=== PATIENT | female | born 1990 | race Caucasian/White ===

== ENCOUNTER 2017-02-16 20:19 | Emergency (ER) | payer BC ==
[~2017-02-16] VITALS: Ht 162.6 cm; Wt 56.7 kg
[2017-02-16] MEDS ORDERED: IV NORMAL SALINE 1,000ML 1,000 ML IV SCH (20:47)
--- NOTE | 2017-02-16 20:47 | PHYS DOC ---
Past History Past Medical History: No Pertinent History Past Surgical History: No Surgical History Adult General Chief Complaint Chief Complaint: ABDOMINAL PAIN [facility] Patient is a 27 year old female who presents with abdominal pain. Started today at 1300 PM. Nausea but no vomiting. Pain is right lower. No diarrhea or abnormal stools. No urinary complaints. No fever. No travel. No sick contacts. No prior surgeries. Review of Systems Review of Systems Constitutional: Denies fever or chills Eyes: Denies change in visual acuity, redness, or eye pain HENT: Denies nasal congestion or sore throat Respiratory: Denies cough or shortness of breath Cardiovascular: No additional information not addressed in HPI. No chest pain. GI: Note abdominal pain, nausea, but no vomiting, No bloody stools or diarrhea : Denies dysuria or hematuria Musculoskeletal: Denies back pain or joint pain Integument: Denies rash or skin lesions Neurologic: Denies headache, focal weakness or sensory changes Physical Exam Physical Exam Constitutional: Well developed, well nourished, in some pain, non-toxic appearance. HENT: Normocephalic, atraumatic, bilateral external ears normal, oropharynx moist, no oral exudates, nose normal. Eyes: PERRLA, EOMI, conjunctiva normal, no discharge. Neck: Normal range of motion, no tenderness, supple, no stridor. Cardiovascular:Heart rate regular rhythm, no murmur Lungs & Thorax: Bilateral breath sounds clear to auscultation Abdomen: Bowel sounds normal, soft, tenderness focal right lower quadrant; some voluntary rebound but no guarding, no masses, no pulsatile masses. Skin: Warm, dry, no erythema, no rash. Back: No tenderness, no CVA tenderness. Extremities: No tenderness, no cyanosis, no clubbing, ROM intact, no edema. Neurologic: Alert and oriented X 3, normal motor function, normal sensory function, no focal deficits noted. Psychologic: Affect normal, judgement normal, mood normal. Current Patient Data Vital Signs Vital Signs Date Time Temp Pulse Resp B/P (MAP) Pulse Ox O2 Delivery O2 Flow Rate FiO2 02/16/17 21:29 16 02/16/17 20:45 97.9 66 100 Room Air Lab Results Laboratory Tests Test 02/16/17 21:00 02/16/17 21:02 Urine Collection Type Unknown Urine Color Yellow Urine Clarity Hazy Urine pH 8.0 Urine Specific [place] 1.020 Urine Protein Neg Urine Glucose (UA) Neg mg/dL Urine Ketones (Stick) 40 mg/dL Urine Blood Neg Urine Nitrite Neg Urine Bilirubin Neg Urine Urobilinogen Dipstick 0.2 mg/dL Urine Leukocyte Esterase Neg Urine RBC 0 /HPF Urine WBC 0 /HPF Urine Squamous Epithelial Cells Many /LPF Urine Bacteria Few /HPF White Blood Count 12.5 x10^3/uL Red Blood Count 4.62 x10^6/uL Hemoglobin 13.2 g/dL Hematocrit 39.6 % Mean Corpuscular Volume 86 fL Mean Corpuscular Hemoglobin 29 pg Mean Corpuscular Hemoglobin Concent 33 g/dL Red Cell Distribution Width 12.9 % Platelet Count 235 x10^3/uL Neutrophils (%) (Auto) 73 % Lymphocytes (%) (Auto) 21 % Monocytes (%) (Auto) 5 % Eosinophils (%) (Auto) 0 % Basophils (%) (Auto) 0 % Neutrophils # (Auto) 9.1 x10^3uL Lymphocytes # (Auto) 2.7 x10^3/uL Monocytes # (Auto) 0.6 x10^3/uL Eosinophils # (Auto) 0.0 x10^3/uL Basophils # (Auto) 0.0 x10^3/uL Sodium Level 138 mmol/L Potassium Level 3.5 mmol/L Chloride Level 99 mmol/L Carbon Dioxide Level 27 mmol/L Anion Gap 12 Blood Urea Nitrogen 9 mg/dL Creatinine 0.8 mg/dL Estimated GFR (Cockcroft-Gault) 86.7 BUN/Creatinine Ratio 11 Glucose Level 94 mg/dL Calcium Level 9.6 mg/dL Total Bilirubin 0.5 mg/dL Aspartate Amino Transf (AST/SGOT) 14 U/L Alanine Aminotransferase (ALT/SGPT) 23 U/L Alkaline Phosphatase 96 U/L Total Protein 8.3 g/dL Albumin 4.4 g/dL Albumin/Globulin Ratio 1.1 Serum Test, Qualitative Negative Current Medications Medications (Trade) Dose Ordered Sig/Ping Route PRN Reason Start Time Stop Time Status Last Admin Dose Admin Morphine Sulfate (Morphine 2mg Syringe) 2 mg PRN Q15MIN PRN IV/SQ PAIN GREATER THAN 3/10 02/16/17 21:00 02/17/17 20:59 02/16/17 21:29 Sodium Chloride 1,000 ml @ 1,000 mls/hr Q1H IV 02/16/17 20:47 02/16/17 21:46 DC 02/16/17 21:28 Ondansetron HCl (Zofran) 4 mg 1X ONCE IV 02/16/17 21:30 02/16/17 21:31 DC 02/16/17 21:29 Iohexol (Omnipaque 300 Mg/ml) 75 ml 1X ONCE IV 02/16/17 22:00 02/16/17 22:01 Radiology/Procedures Radiology/[place] [address] IMAGING REPORT Signed PATIENT: KENYON SAMUEL ACCOUNT: [id number] : 1990 LOCATION: ER AGE: 27 SEX: F EXAM STATUS: REG ER ORD. PHYSICIAN: DEISI MORALES MD REASON: RLQ pain w elev WBC PROCEDURE: CT ABD PELV W/ IV CONTRST ONLY PROCEDURE CT study of the abdomen and pelvis with contrast HISTORY Right lower quadrant pain. Elevated white blood cell count. Nausea today. TECHNIQUE After IV infusion of 75 cc of Omnipaque 300, helical CT scanning of the abdomen and pelvis was performed. No GI contrast was administered. This may decrease the sensitivity to detect GI tract pathology. One or more of the following individualized dose reduction techniques were utilized for this study: 1. Automated exposure control 2. Adjustment of the mA and/or kV according to patient size 3. Use of iterative reconstruction technique COMPARISON None available. FINDINGS The liver and spleen and pancreas and gallbladder are normal. No extrahepatic biliary ductal dilatation is seen. No adrenal mass is evident. Both kidneys are normal. No hydronephrosis or hydroureter is seen. Urinary bladder wall is smooth. No uterine mass or fibroid is seen. There is a cyst of the right ovary measuring 2.7 centimeters. There is a small amount of free fluid within the cul-de-sac. The appendix cannot be visualized on this study without GI contrast material. No wall thickening of the cecum or mesenteric inflammatory change or free fluid is seen around the base of the cecum. No small bowel obstruction is evident. There is mild fecal retention throughout the colon. No free air or inflammatory change is seen. No lung base consolidation is evident. No focal aneurysmal dilatation of the abdominal aorta is seen. No enlarged abdominal or pelvic lymphadenopathy is seen. No osteolytic process is seen. IMPRESSION There is 2.7 centimeter right ovarian cyst. A small amount of free fluid is seen within the cul-de-sac. The appendix cannot be visualized in this study without GI contrast material. No obstructive bowel pattern or free air is seen. Electronically signed by: Jamaal Howard MD (February 16, 2017 22:27:04) DICTATED AND SIGNED BY: JAMAAL HOWARD MD DATE: 02/16/172226 CC: DEISI MORALES MD; PCP,NO ~ Course & Med Decision Making Course & Med Decision Making Pertinent Labs and Imaging studies reviewed. (See chart for details) Evaluated patient upon arrival; concerned about appy. IV NS, IV morphine 2 mg and Zofran. Kept NPO 2135 PM: WBC is elevated; HCG negative. CT ordered. 2345 PM: CT results back: no evidence of appendicitis; right ovarian cyst with fluid in cul de sac. Repeat exam: NO rebound or guarding; no evidence of acute surgical abdomen; feels much better. Home with ABDOMINAL PAIN PRECAUTIONS given to patient and S.O. Rx; Zofran and norco. Dragon Disclaimer Dragon Disclaimer This chart was dictated in whole or in part using Voice Recognition software in a busy, high-work load, and often noisy Emergency Department environment. It may contain unintended and wholly unrecognized errors or omissions. Departure Departure: Impression: Primary Impression: Abdominal pain Additional Impression: Right ovarian cyst Disposition: HOME, SELF-CARE Condition: STABLE Referrals: PCP,EDE (PCP) Scripts Hydrocodone Bit/Acetaminophen (NORCO 5-325 TABLET) 1 Each Tablet 1 TAB PO PRN Q6HRS Y for PAIN for 7 Days, TAB 0 Refills Prov: DEISI MORALES MD 02/16/17 Naproxen (NAPROSYN) 500 Mg Tablet 500 MG PO BID for 10 Days, #20 TAB Prov: DEISI MORALES MD 02/16/17 Ondansetron (ZOFRAN ODT) 8 Mg Tab.rapdis 8 MG PO TID PRN Y for NAUSEA for 7 Days Prov: DEISI MORALES MD 02/16/17 Problem Qualifiers DEISI MORALES MD February 16, 2017 20:47
[2017-02-16] MEDS ORDERED: MORPHINE SULFATE 2 MG/ML DISP.SYRIN. IV/SQ PRN (21:00)
[2017-02-16 21:20] LABS: BASO % 0 % (0-3); EOS % 0 % (0-3); HEMATOCRIT 39.6 % (36.0-47.0); HEMOGLOBIN 13.2 g/dL (12.0-15.5); LYMPH # 2.7 x10^3/uL (1.0-4.8); LYMPH % 21 % (24-48); MEAN CORPUSCULAR HEMOGLOBIN 29 pg (25-35); MEAN CORPUSCULAR HGB CONC 33 g/dL (31-37); MEAN CORPUSCULAR VOLUME 86 fL (79-100); MONO # 0.6 x10^3/uL (0.0-1.1); MONO % 5 % (0-9); NEUT # 9.1 x10^3uL (1.8-7.7); NEUT % 73 % (31-73); PLATELET COUNT 235 x10^3/uL (140-400); RED BLOOD COUNT 4.62 x10^6/uL (3.50-5.40); RED CELL DISTRIBUTION WIDTH 12.9 % (11.5-14.5); WHITE BLOOD COUNT 12.5 x10^3/uL (4.0-11.0)
[2017-02-16 21:29] LABS: PREG TEST PT QUAL NEGATIVE (NEG)
[2017-02-16 21:30] LABS: ALBUMIN 4.4 g/dL (3.4-5.0); ALBUMIN/GLOBULIN RATIO 1.1 (1.0-1.7); CALCIUM 9.6 mg/dL (8.5-10.1); CREATININE 0.8 mg/dL (0.6-1.0); GFR 86.7; POTASSIUM 3.5 mmol/L (3.5-5.1); TOTAL BILIRUBIN 0.5 mg/dL (0.2-1.0); TOTAL PROTEIN 8.3 g/dL (6.4-8.2)
[2017-02-16] MEDS ORDERED: ONDANSETRON PF 4 MG/2 ML VIAL. IV ONE (21:30)
[2017-02-16 21:35] LABS: BILIRUBIN,URINE NEG (NEG); CLARITY,URINE HAZY; COLOR,URINE YELLOW; GLUCOSE,URINE NEG (NEG); NITRITE,URINE NEG (NEG); UROBILINOGEN,URINE 0.2 mg/dL (0.2 mg/dL)
[2017-02-16 21:36] LABS: BACTERIA,URINE FEW /HPF (0-FEW); RBC,URINE 0 /HPF (0-2); SQUAMOUS EPITHELIAL CELL,UR MANY /LPF; WBC,URINE 0 /HPF (0-4)
[2017-02-16] MEDS ORDERED: IOHEXOL 300 MG/ML 75 ML VIAL. IV ONE (22:00)
--- NOTE | 2017-02-16 22:28 | RAD ---
PROCEDURE CT study of the abdomen and pelvis with contrast HISTORY Right lower quadrant pain. Elevated white blood cell count. Nausea today. TECHNIQUE After IV infusion of 75 cc of Omnipaque 300, helical CT scanning of the abdomen and pelvis was performed. No GI contrast was administered. This may decrease the sensitivity to detect GI tract pathology. One or more of the following individualized dose reduction techniques were utilized for this study: 1. Automated exposure control 2. Adjustment of the mA and/or kV according to patient size 3. Use of iterative reconstruction technique COMPARISON None available. FINDINGS The liver and spleen and pancreas and gallbladder are normal. No extrahepatic biliary ductal dilatation is seen. No adrenal mass is evident. Both kidneys are normal. No hydronephrosis or hydroureter is seen. Urinary bladder wall is smooth. No uterine mass or fibroid is seen. There is a cyst of the right ovary measuring 2.7 centimeters. There is a small amount of free fluid within the cul-de-sac. The appendix cannot be visualized on this study without GI contrast material. No wall thickening of the cecum or mesenteric inflammatory change or free fluid is seen around the base of the cecum. No small bowel obstruction is evident. There is mild fecal retention throughout the colon. No free air or inflammatory change is seen. No lung base consolidation is evident. No focal aneurysmal dilatation of the abdominal aorta is seen. No enlarged abdominal or pelvic lymphadenopathy is seen. No osteolytic process is seen. IMPRESSION There is 2.7 centimeter right ovarian cyst. A small amount of free fluid is seen within the cul-de-sac. The appendix cannot be visualized in this study without GI contrast material. No obstructive bowel pattern or free air is seen. Electronically signed by: Aleksandr Howard MD (February 16, 2017 22:27:04)
[2017-02-16] MEDS ORDERED: ONDA8TAB12 PO (23:06)
[2017-02-16] MEDS ORDERED: HYDR-971 PO (23:06)
[2017-02-16] MEDS ORDERED: NAPR500T PO (23:06)
[2017-02-16 23:15] VITALS: BP 118/58
== END 2017-02-16 23:15 | disposition home or self-care (01) ==
LOC: ER 20:19
DX: N83.201 Unspecified ovarian cyst, right side (principal)
CPT/HCPCS: 36415; 74177; 80053; 81001; 84703; 85027; 96361; 96374; 96375; 99285; J2270; J2405; Q9967; J7030